=== PATIENT | male | born 1955 | race Caucasian/White ===

== ENCOUNTER 2016-07-01 06:08 | Day surgery (SDC) | payer OTHER ==
[2016-06-20 15:33] LABS: BASOPHILS 0.5 %; BASOPHILS ABSOLUTE 0.03 10/3/uL (0.0-0.16); EOSINOPHILS 2.6 %; EOSINOPHILS ABSOLUTE 0.16 10/3/uL (0.0-0.53); HEMATOCRIT 43.4 % (40.0-51.0); HEMOGLOBIN 14.6 g/dL (13.6-17.8); LYMPHOCYTES 44.7 %; MEAN CORPUS HGB CONC 33.6 g/dL (32.0-36.0); MEAN CORPUSCULAR HEMOGLOB 29.8 pg (26.0-34.0); MEAN CORPUSCULAR VOLUME 88.6 fL (80-100); MEAN PLATELET VOLUME 9.3 fL (9.2-13.0); MONOCYTES 10.1 %; MONOCYTES ABSOLUTE 0.61 10/3/uL (0.21-1.20); NEUTROPHILS 42.1 %; NEUTROPHILS ABSOLUTE 2.54 10/3/uL (2.02-8.40); PLATELET COUNT 312 10/3/uL (150-400); RBC DISTRIBUTION WIDTH 13.2 % (12.0-16.0)
[2016-06-20 15:34] LABS: MANUAL DIFF NO %
[2016-06-20 16:08] LABS: A/G RATIO 1.1 (0.7-1.9); ALBUMIN 4.1 G/DL (3.5-5.0); ALKALINE PHOSPHATASE 90 U/L (45-117); BUN (BLOOD UREA NITROGEN) 16 MG/DL (6-23); CHLORIDE, SERUM 103 MMOL/L (96-112); CO2 (CARBON DIOXIDE) 30 MMOL/L (24-34); CREATININE 1.16 MG/DL (0.70-1.30); GFR AFRICAN AMERICAN 79 ML/MIN (>=60); GFR NON AFRICAN AMERICAN 68 ML/MIN (>=60); GLOBULIN 3.8 G/DL (2.5-4.1); GLUCOSE, SERUM 87 MG/DL (60-99); POTASSIUM, SERUM 3.7 MMOL/L (3.5-5.3); SGOT(AST) 26 U/L (5-40); SGPT(ALT) 49 U/L (5-65); SODIUM, SERUM 142 MMOL/L (135-148); TOTAL BILIRUBIN 0.5 MG/DL (0-1.2); TOTAL PROTEIN 7.9 G/DL (6.0-8.5)
--- NOTE | ~2016-07-01 | PREOPHP ---
PreOp History and Physical [id number] [place]. [address] NAME: RAZIA MCGRAW : 57 STATUS : [place] [facility] [place] [id number] AGE: 61 ADM/REG DATE : MR#: [id number] REPORT SERV DATE: 07/01/16 DICTATED BY: NICOLETTE AVILES III DATE: 06/06/16 REPORT STATUS : Draft TRANSCRIBED BY: MODL DATE: 06/06/16 HISTORY OF PRESENT ILLNESS: This 61-year-old male comes to the operating room for resection of perineal lesion located on the posterior scrotum versus possible fistulotomy. The patient has a lesion on his posterior scrotum. This is located in the median raphe. This has been associated with intermittent drainage and pain and swelling. It is unclear if this is a sebaceous cyst or other cystic lesion versus a fvheqpk-zv-hxn. The patient comes now for either resection of this or fistulotomy, depending on operative findings. These symptoms have been ongoing for about one month. It has been associated with swelling and pain in the area locally. PAST MEDICAL HISTORY: 1. Hypertension. 2. Obstructive sleep apnea. 3. Hypertension. 4. History of skin "boils.". ALLERGIES: NONE. PAST SURGICAL HISTORY: Cholecystectomy, back surgery, carpal tunnel syndrome surgery. FAMILY HISTORY: Positive for heart disease and cancer. SOCIAL HISTORY: No history of tobacco use. The patient does have a history of alcohol use. REVIEW OF SYSTEMS: The patient's 14-point review of systems otherwise unremarkable. PHYSICAL EXAMINATION: GENERAL: Reveals an obese male, in no acute distress. He is alert and oriented x3. VITAL SIGNS: Blood pressure 170/89, heart rate 66, temp 97.5. HEENT: Unremarkable. Cranial nerves 2 through 12 are normal. LUNGS: Clear. CARDIAC: Normal. Over the perineum, in the midline along the posterior scrotum was a sinus tract. There is some induration around this. There is no drainage currently expressible. RECTAL: Normal. ASSESSMENT: 1. This is a 61-year-old male with intermittent swelling and sinus tract of the lesion in the perineum over the median raphe in the posterior scrotum, either subcutaneous cystic process or dlhlltj-lz-boq. 2. Hypertension. 3. Obesity. 4. Obstructive sleep apnea. PLAN: The patient comes to the operating room now for resection of this lesion of the PreOp History and Physical [address] [place]. [address] NAME: RAZIA MCGRAW : 57 STATUS : [place] [facility] [place]#: [id number] AGE: 61 ADM/REG DATE : MR#: [id number] REPORT SERV DATE: 07/01/16 DICTATED BY: NICOLETTE AVILES III DATE: 06/06/16 REPORT STATUS : Draft TRANSCRIBED BY: JULIO CÉSAR DATE: 06/06/16 perineum or fistulotomy, depending on the clinical findings. This procedure, the risks, benefits, and alternatives, including not limited to the risk for bleeding, infection, pain, swelling, scarring, deformity to the area, seroma formation, hematoma formation, wound failure, wound dehiscence, sphincter injury with permanent continence of stool, and unforeseen complications including deep venous thrombosis, pulmonary embolus, myocardial infarction, stroke, pneumonia, and , have been explained to the patient prior to surgery. The expected length of recovery has been explained. The fact that the procedure performed will depend on the exact surgical findings at the time of surgery has been explained. The patient's questions have been answered. He understands the risks and agrees to surgery as planned. BIENVENIDO/JULIO CÉSAR Nicolette Aviles III, M.D. / [id number]
--- NOTE | ~2016-07-01 | OP ---
Record Of Operation [facility] [address] [place]. [address] NAME: RAZIA CONTRERAS : 57 [place]US : [place] [facility] [place] [id number] AGE: 61 ADM/REG DATE : 07/01/16 MR#: [id number] REPORT SERV DATE: 07/01/16 DICTATED BY: NICOLETTE CHAN III DATE: 07/01/16 REPORT STATUS : Draft TRANSCRIBED BY: MODL DATE: 07/01/16 DATE OF PROCEDURE: 07/01/2016 PREOPERATIVE DIAGNOSES: 1. Scrotal mass, associated with intermittent infection. 2. Scrotal mass associated with scrotal sinus tract extending to the rectum. 3. Scrotal skin tag. PROCEDURE: Resection of scrotal mass with subcutaneous sinus tract and excision of scrotal skin tag. SURGEON: Nicolette Chan M.D. ANESTHESIA: General with intubation. COMPLICATIONS: None. ESTIMATED BLOOD LOSS: Less than 5 mL. SPECIMENS: Scrotal mass with sinus tract and skin tag. DRAINS: [place] in subcutaneous tissue. LAP AND SPONGE COUNT: Correct x3. BRIEF HISTORY: Mr. Contreras presented with a mass located in the posterior aspect of the midline of the scrotum. This was associated with intermittent infection and pain and swelling. This area would intermittently swell and become very painful and then decrease in swelling. It was felt that resection of this was indicated. There appeared to be a sinus tract or sinus opening associated with this and it was felt that this might represent a chronic scnkgdl-fo-sjy versus a chronic cystic neoplasm of the scrotum. It was felt that resection of this mass with possible fistulotomy, if a fistula was present, was indicated. The patient had a small adjacent skin tag on scrotum which he wished to have excised as well. This procedure, the risks, benefits, and alternatives, including not limited to the risk for bleeding, infection, pain, swelling, scarring, deformity to the area, seroma formation, hematoma formation, wound failure, wound dehiscence, sphincter injury, incontinence of stool, possible need for further surgery, and unforeseen complications including deep venous thrombosis, pulmonary embolus, myocardial infarction, stroke, pneumonia, and , were explained to the patient prior to the surgery. The expected length of recovery was explained. The patient's questions were answered. He understood the risks and agreed to the surgery as planned. PROCEDURE IN DETAIL: After being properly identified and after discussing the risks of surgery with him again in the preoperative area and after identifying the lesion of concern with him in the preoperative area, the patient was taken to the operating room and placed in Record Of Operation [address] [address] NAME: RAZIA CONTRERAS : 57 STATUS : [place] [facility] [place] PAT#: [id number] AGE: 61 ADM/REG DATE : 07/01/16 MR#: [id number] REPORT SERV DATE: 07/01/16 DICTATED BY: NICOLETTE CHAN III DATE: 07/01/16 REPORT STATUS : Draft TRANSCRIBED BY: MODSamara DATE: 07/01/16 the supine position on the operating room table. General anesthesia was administered. He was intubated without difficulty. His legs were placed in stirrups. They were carefully and appropriately padded and protected. The perineum was prepped and draped sterilely in the usual fashion. After an appropriate "time-out" per JCAHO standards, an elliptical-shaped vertically oriented incision was made directly over the mass on the posterior aspect of the scrotum in the median raphe. The incision was continued through the subcutaneous tissue. A well-defined, well-circumscribed hard mass was identified. There was a sinus tract associated with this which extended to the rectum in the midline. A probe was placed in this sinus tract. The sinus tract was some 3-4 cm in length and extended directly beneath the median raphe all the way to the anal verge. It did not appear to penetrate the anus. It did not appear to be a fistula rather sinus tract extending from this primary scrotal mass. The entire sinus tract was resected to its junction with the anal verge. Again, it did not penetrate the mucosa of the anus or rectum. The entire sinus tract and mass were resected en bloc. The area was irrigated copiously with saline. Hemostasis was assured. The subcutaneous tissue was closed with running 3-0 chromic suture over a Fermin drain which was brought out through the superior aspect of the incision. The skin was closed with running subcuticular 4-0 Monocryl stitch. The incision was injected with 0.5% Marcaine. The patient had adjacent small scrotal skin tag which was excised and sent for permanent pathology. Dressings were applied. Anesthesia was reversed and the patient was taken to the recovery room in stable condition. He tolerated the procedure well. His family was informed of the results of surgery. The patient was discharged in stable and comfortable, able to void and ambulate. His family was advised they should keep his wound clean and dry for [address] He should not drive for three to four days after surgery or while using narcotics and then should resume his usual medications. He has been asked to return in two weeks for followup or sooner if any fever, chills, wound drainage, or other problems prior to that time. He was given a prescription for Percocet 7.5 one t.i.d., #12, as needed for pain, which he was advised not to use while driving. RHRicardo/JULIO CÉSAR Nicolette Chan III, M.D. / [id number] CC: Saadia Chatman III, M.D.
[~2016-07-01 06:08] MED LIST: CENTRUM PO; CLARIT10 PO; HYZAAR 100/25 T1 TAB PO; MOTRIN IB200 MG PO; RESTASIS OPH; SORIATANE25 MG PO; WELL75 PO; ZITH250 PO
== END 2016-07-01 16:55 | disposition home or self-care (01) ==
LOC: SDC 06:08
PROVIDERS: Surgery
PROC: 0HQAXZZ Repair Inguinal Skin, External Approach (ICD-10-PCS; 2016-07-01)
PROC: 0HBAXZZ Excision of Inguinal Skin, External Approach (ICD-10-PCS; principal; 2016-07-01 07:30)
DX: D29.4 Benign neoplasm of scrotum (principal); L91.8 Other hypertrophic disorders of the skin; L71.9 Rosacea, unspecified; I10 Essential (primary) hypertension; G47.33 Obstructive sleep apnea (adult) (pediatric); E78.00 Pure hypercholesterolemia, unspecified; E66.9 Obesity, unspecified; Z68.34 Body mass index [BMI] 34.0-34.9, adult; Z87.2 Personal history of diseases of the skin and subcutaneous tissue; Z90.49 Acquired absence of other specified parts of digestive tract; Z98.890 Other specified postprocedural states; Z82.49 Family history of ischemic heart disease and other diseases of the circulatory system; Z80.9 Family history of malignant neoplasm, unspecified; Z91.018 Allergy to other foods; Z79.2 Long term (current) use of antibiotics; Z79.899 Other long term (current) drug therapy; Z99.89 Dependence on other enabling machines and devices
CPT/HCPCS: 71020; 80053; 85025; 88304; 88307; 93005; A9270-GY; J0690; J1885; J2250; J2405; J3010